=== PATIENT | female | born 1990 | race Two or more races ===

== ENCOUNTER 2025-06-01 21:24 | Emergency (ER) | payer OTHER ==
[~2025-06-01] VITALS: Ht 167.6 cm; Wt 70.0 kg
[2025-06-01 21:33] VITALS: TEMP 97.2
[2025-06-01 23:10] LABS: PLATELET COUNT (AUTO) 267 K/uL (150-450); RED BLOOD CELL COUNT(AUTO) 3.84 MIL/uL (4.00-5.20); RED CELL DISTRIBUTION WIDTH 15.9 % (11.5-14.5); WHITE BLOOD COUNT (AUTO) 7.7 K/uL (4.5-11.0)
[2025-06-01 23:21] LABS: CALCIUM, TOTAL 8.5 mg/dL (8.8-10.5); CREATININE 0.43 mg/dL (0.60-1.30); GLOMERULAR FILTR. RATE CALC > 60 mL/min (>60); GLUCOSE,RANDOM 79 mg/dL (70-110); SODIUM SERUM 147 mmol/L (136-145); UREA NITROGEN, BLOOD 7 mg/dL (7-18)
[2025-06-01 23:25] LABS: ASPARTATE AMINOTRANSFERASE 18.0 U/L (15-37); TOTAL PROTEIN, SERUM 7.7 g/dL (6.4-8.2)
[2025-06-01 23:33] LABS: ALCOHOL, BLOOD (SERUM) 366.0 mg/dL (0-10)
[2025-06-02 01:06] VITALS: BP 104/60; PULSE 86; RESP 14; O2SAT 98
== END 2025-06-02 01:47 | disposition home or self-care (01) ==
LOC: EMS 21:24
DX: F10.129 Alcohol abuse with intoxication, unspecified (principal); Y90.8 Blood alcohol level of 240 mg/100 ml or more
CPT/HCPCS: 99283; 80048; 80076; 85025; 36415; G0480